=== PATIENT | female | born 1960 | race Caucasian/White ===

== ENCOUNTER → 2023-07-27 14:49 | Outpatient (REF) | payer BC, SELFPAY | LOC: RAD 14:49 | PROVIDERS: ATTENDING PHYSICIAN Nurse Practitioner Family | DX: Z13.820 Encounter for screening for osteoporosis (principal); M79.652 Pain in left thigh; M79.651 Pain in right thigh | CPT/HCPCS: 73522; 73564; 77080 ==

== ENCOUNTER → 2023-08-31 16:50 | Outpatient (REF) | payer BC, SELFPAY | LOC: HWWDC 16:50 | PROVIDERS: ATTENDING PHYSICIAN Nurse Practitioner Family; FAMILY PHYSICIAN Family Medicine | DX: Z12.31 Encounter for screening mammogram for malignant neoplasm of breast (principal) | CPT/HCPCS: 77063; 77067 ==

== ENCOUNTER → 2024-08-31 16:14 | Outpatient (REF) | payer BC, SELFPAY | LOC: HWWDC 16:14 | PROVIDERS: ATTENDING PHYSICIAN Family Medicine | DX: Z12.31 Encounter for screening mammogram for malignant neoplasm of breast (principal) | CPT/HCPCS: 77063; 77067 ==